=== PATIENT | female | born 1990 | race American Indian/Alaskan Native ===

== ENCOUNTER 2019-03-08 00:53 | Observation (INO) | payer OTHER ==
[2019-03-08 02:08] LABS: Eosinophils % (Auto) 0.5 % (0.0-4.3); Monocytes # (Auto) 0.7 K/mm3 (0.0-0.8); Monocytes % (Auto) 9.1 % (0.0-7.3)
[2019-03-08 02:30] LABS: Hematocrit 21.7 % (30.3-42.9); Hemoglobin 6.2 gm/dl (10.1-14.3); Mean Corpuscular HGB Conc 28 % (30-34); Mean Corpuscular Volume 54 fl (79-97); Red Blood Count 4.04 M/mm3 (3.65-5.03)
[2019-03-08 02:31] LABS: Basophils % (Auto) 0.3 % (0.0-1.8); Lymphocytes # (Auto) 0.3 K/mm3 (1.2-5.4); Mean Platelet Volume 8.5 fl (6-12); Platelet Count 262 K/mm3 (140-440); Red Cell Distribution Width 21.1 % (13.2-15.2)
[2019-03-08] MEDS ORDERED: ONDANSETRON 4 MG ODT TAB PO ONE (02:50)
[2019-03-08 02:51] LABS: Alanine Aminotransferase 11 units/L (7-56); Albumin 4.4 g/dL (3.9-5); BUN/Creatinine Ratio 18; Blood Urea Nitrogen 11 mg/dL (7-17); Calcium 9.2 mg/dL (8.4-10.2); Hemolysis Index 0
[2019-03-08] MEDS ORDERED: SODIUM CHLORIDE 0.9% 1000 ML 1,000 ML IV ONE (03:17)
[2019-03-08] MEDS ORDERED: ONDANSETRON 4 MG/2 ML INJ IV ONE (03:39)
[2019-03-08 03:42] LABS: % Iron Saturation 2.22 %
[2019-03-08 03:43] LABS: Bacteria,Urine 1+ /HPF (Negative); Bilirubin,Urine NEG (Negative); Blood,Urine LG (Negative); Color,Urine Yellow (Yellow); Mucus,Urine FEW /HPF; Urobilinogen,Urine < 2.0 mg/dL (<2.0)
[2019-03-08 03:46] LABS: HCG Qualitative,Urine Negative (Negative)
[2019-03-08 03:48] LABS: RBC,Urine 0.2 /HPF (0.0-6.0)
[2019-03-08] MEDS ORDERED: SODIUM CHLORIDE 0.9% 500 ML 500 ML IV ONE ×2 (04:01→07:54)
[2019-03-08] MEDS ORDERED: cefTRIAXone/NS 1 GM/50 ML 1 GM/50 ML BAG IV ONE (04:37)
[2019-03-08] MEDS ORDERED: SODIUM CHLORIDE 0.9% 250ML 250 ML ONE (05:16)
[2019-03-08] MEDS ORDERED: KETOROLAC 30 MG/1 ML INJ IV ONE (05:20)
--- NOTE | 2019-03-08 05:21 | Emergency Department Report ---
ED N/V/D HPI - General Chief complaint: Nausea/Vomiting/Diarrhea Stated complaint: N/V/D Time Seen by Provider: 03/08/19 03:49 Source: patient, EMS Mode of arrival: Wheelchair Limitations: No Limitations - History of Present Illness Initial comments: 28-year-old female with a past medical history of asthma, depression, and heavy menses presents to the hospital complaining of nausea, vomiting, and diarrhea by mouth intolerance since 11 PM. Patient complains of lower abdominal pain described as a constant aching worse with palpation and moderate in intensity. Patient is currently on menstrual cycle since yesterday and has used 5 pads super pads and has heavy menstrual cycles. Patient states she often has nausea vomiting with her menstruation but states this is more severe than usual. No complaints of fever. She denies a history of known anemia iron deficiency. She denies a history of fibroids. She does not have a primary care doctor. Patient doesn't was lightheadedness and intermittent shortness of breath but she does have a history of asthma. - Related Data Home Medications Medication Instructions Recorded Confirmed Last Taken No Known Home Medications [No 03/08/19 03/08/19 Unknown Reported Home Medications] Allergies Allergy/AdvReac Type Severity Reaction Status Date / Time coconut Allergy Itching Verified 03/08/19 06:51 ED Review of Systems ROS: Stated complaint: N/V/D Other details as noted in HPI Comment: All other systems reviewed and negative ED Past Medical Hx - Past Medical History Previous Medical History?: Yes Hx Psychiatric Treatment: Yes (Depression) Hx Asthma: Yes - Surgical History Past Surgical History?: No - Social History Smoking Status: Never Smoker Substance Use Type: Alcohol - Medications Home Medications: Home Medications Medication Instructions Recorded Confirmed Last Taken Type No Known Home Medications [No 03/08/19 03/08/19 Unknown History Reported Home Medications] ED Physical Exam - General Limitations: No Limitations - Other Other exam information: General: No acute distress Head: Atraumatic Eyes: normal appearance ENT: Moist mucous membranes Neck: Normal appearance, no midline tenderness Chest: Clear to auscultation bilaterally CV: Regular rate and rhythm Abdomen: Soft, normal bowel sounds, suprapubic fullness/mass with tenderness, no rebound or guarding Extremity: Normal inspection infection, full range of motion Neuro: Alert O x 3, no facial asymmetry, speech clear, no gross motor sensory deficit Psych: Appropriate behavior Skin: Pale nailbeds ED Course Vital Signs 03/08/19 03/08/19 03/08/19 01:13 03:11 03:41 Temperature 98.4 F Pulse Rate 77 60 Respiratory 16 20 14 Rate Blood Pressure 127/68 111/47 111/47 Blood Pressure [Left] O2 Sat by Pulse 95 100 97 Oximetry 03/08/19 03/08/19 03/08/19 04:00 06:20 06:30 Temperature 99 F Pulse Rate 67 75 77 Respiratory 12 13 12 Rate Blood Pressure 114/50 129/74 129/71 Blood Pressure [Left] O2 Sat by Pulse 99 100 Oximetry 03/08/19 03/08/19 03/08/19 06:35 06:46 07:00 Temperature 99.1 F Pulse Rate 67 69 Respiratory 17 14 Rate Blood Pressure 125/69 114/50 132/71 Blood Pressure [Left] O2 Sat by Pulse 100 100 Oximetry 03/08/19 03/08/19 03/08/19 07:05 07:14 07:15 Temperature 98.3 F Pulse Rate 69 54 L 67 Respiratory 14 15 12 Rate Blood Pressure 132/71 132/60 Blood Pressure 132/71 [Left] O2 Sat by Pulse 100 100 100 Oximetry 03/08/19 03/08/19 03/08/19 07:31 07:35 07:45 Temperature 98.3 F Pulse Rate 73 73 79 Respiratory 15 15 26 H Rate Blood Pressure 125/64 125/64 129/65 Blood Pressure [Left] O2 Sat by Pulse 100 100 90 Oximetry 03/08/19 03/08/19 03/08/19 08:00 08:05 08:15 Temperature 98.3 F Pulse Rate 54 L 54 L 71 Respiratory 15 15 22 Rate Blood Pressure 120/67 120/67 115/62 Blood Pressure [Left] O2 Sat by Pulse 100 100 96 Oximetry 03/08/19 03/08/19 03/08/19 08:30 08:35 08:45 Temperature Pulse Rate 71 68 68 Respiratory 14 14 20 Rate Blood Pressure 131/62 131/62 134/74 Blood Pressure [Left] O2 Sat by Pulse 98 98 100 Oximetry 03/08/19 09:24 Temperature 99 F Pulse Rate 68 Respiratory 18 Rate Blood Pressure Blood Pressure 134/74 [Left] O2 Sat by Pulse 100 Oximetry ED Medical Decision Making - Lab Data Result diagrams: 03/08/19 18:46 03/08/19 01:39 Lab Results 03/08/19 03/08/19 03/08/19 Range/Units 01:39 01:39 03:16 WBC 7.9 (4.5-11.0) K/mm3 RBC 4.04 (3.65-5.03) M/mm3 Hgb 6.2 L (10.1-14.3) gm/dl Hct 21.7 L (30.3-42.9) % MCV 54 L (79-97) fl MCH 15 L (28-32) pg MCHC 28 L (30-34) % RDW 21.1 H (13.2-15.2) % Plt Count 262 (140-440) K/mm3 Lymph % (Auto) 4.0 L (13.4-35.0) % Lucas % (Auto) 9.1 H (0.0-7.3) % Eos % (Auto) 0.5 (0.0-4.3) % Baso % (Auto) 0.3 (0.0-1.8) % Lymph # 0.3 L (1.2-5.4) K/mm3 Lucas # 0.7 (0.0-0.8) K/mm3 Eos # 0.0 (0.0-0.4) K/mm3 Baso # 0.0 (0.0-0.1) K/mm3 Seg Neutrophils % 85.8 H (40.0-70.0) % Seg Neutrophils # 6.8 (1.8-7.7) K/mm3 Sodium 137 (137-145) mmol/L Potassium 3.3 L (3.6-5.0) mmol/L Chloride 104.4 (98-107) mmol/L Carbon Dioxide 19 L (22-30) mmol/L Anion Gap 17 mmol/L BUN 11 (7-17) mg/dL Creatinine 0.6 L (0.7-1.2) mg/dL Estimated GFR > 60 ml/min BUN/Creatinine Ratio 18 % Glucose 127 H (65-100) mg/dL Calcium 9.2 (8.4-10.2) mg/dL Magnesium 1.70 (1.7-2.3) mg/dL Iron (37-170) ug/dL TIBC (250-450) mcg/dL % Saturation % Transferrin (192-382) mg/dl Total Bilirubin 0.20 (0.1-1.2) mg/dL AST 14 (5-40) units/L ALT 11 (7-56) units/L Alkaline Phosphatase 60 (35-129) units/L Total Protein 7.6 (6.3-8.2) g/dL Albumin 4.4 (3.9-5) g/dL Albumin/Globulin Ratio 1.4 % HCG, Qual (Negative) Urine Color (Yellow) Urine Turbidity (Clear) Urine pH (5.0-7.0) Ur Specific [place] (1.003-1.030) Urine Protein (Negative) mg/dL Urine Glucose (UA) (Negative) mg/dL Urine Ketones (Negative) mg/dL Urine Blood (Negative) Urine Nitrite (Negative) Urine Bilirubin (Negative) Urine Urobilinogen (<2.0) mg/dL Ur Leukocyte Esterase (Negative) Urine WBC (Auto) (0.0-6.0) /HPF Urine RBC (Auto) (0.0-6.0) /HPF U Epithel Cells (Auto) (0-13.0) /HPF Urine Bacteria (Auto) (Negative) /HPF Urine Mucus /HPF Urine HCG, Qual (Negative) Blood Type Antibody Screen Crossmatch 03/08/19 03/08/19 03/08/19 Range/Units 03:17 03:20 03:40 WBC (4.5-11.0) K/mm3 RBC (3.65-5.03) M/mm3 Hgb (10.1-14.3) gm/dl Hct (30.3-42.9) % MCV (79-97) fl MCH (28-32) pg MCHC (30-34) % RDW (13.2-15.2) % Plt Count (140-440) K/mm3 Lymph % (Auto) (13.4-35.0) % Lucas % (Auto) (0.0-7.3) % Eos % (Auto) (0.0-4.3) % Baso % (Auto) (0.0-1.8) % Lymph # (1.2-5.4) K/mm3 Lucas # (0.0-0.8) K/mm3 Eos # (0.0-0.4) K/mm3 Baso # (0.0-0.1) K/mm3 Seg Neutrophils % (40.0-70.0) % Seg Neutrophils # (1.8-7.7) K/mm3 Sodium (137-145) mmol/L Potassium (3.6-5.0) mmol/L Chloride (98-107) mmol/L Carbon Dioxide (22-30) mmol/L Anion Gap mmol/L BUN (7-17) mg/dL Creatinine (0.7-1.2) mg/dL Estimated GFR ml/min BUN/Creatinine Ratio % Glucose (65-100) mg/dL Calcium (8.4-10.2) mg/dL Magnesium (1.7-2.3) mg/dL Iron 10 L (37-170) ug/dL TIBC 451 H (250-450) mcg/dL % Saturation 2.22 % Transferrin 381 (192-382) mg/dl Total Bilirubin (0.1-1.2) mg/dL AST (5-40) units/L ALT (7-56) units/L Alkaline Phosphatase (35-129) units/L Total Protein (6.3-8.2) g/dL Albumin (3.9-5) g/dL Albumin/Globulin Ratio % HCG, Qual Negative (Negative) Urine Color Yellow (Yellow) Urine Turbidity Slightly-cloudy (Clear) Urine pH 7.0 (5.0-7.0) Ur Specific [place] 1.020 (1.003-1.030) Urine Protein 30 mg/dl (Negative) mg/dL Urine Glucose (UA) Neg (Negative) mg/dL Urine Ketones Neg (Negative) mg/dL Urine Blood Lg (Negative) Urine Nitrite Neg (Negative) Urine Bilirubin Neg (Negative) Urine Urobilinogen < 2.0 (<2.0) mg/dL Ur Leukocyte Esterase Neg (Negative) Urine WBC (Auto) 13.0 H (0.0-6.0) /HPF Urine RBC (Auto) 0.2 (0.0-6.0) /HPF U Epithel Cells (Auto) 1.0 (0-13.0) /HPF Urine Bacteria (Auto) 1+ (Negative) /HPF Urine Mucus Few /HPF Urine HCG, Qual Negative (Negative) Blood Type Antibody Screen Crossmatch 03/08/19 Range/Units 03:45 WBC (4.5-11.0) K/mm3 RBC (3.65-5.03) M/mm3 Hgb (10.1-14.3) gm/dl Hct (30.3-42.9) % MCV (79-97) fl MCH (28-32) pg MCHC (30-34) % RDW (13.2-15.2) % Plt Count (140-440) K/mm3 Lymph % (Auto) (13.4-35.0) % Lucas % (Auto) (0.0-7.3) % Eos % (Auto) (0.0-4.3) % Baso % (Auto) (0.0-1.8) % Lymph # (1.2-5.4) K/mm3 Lucas # (0.0-0.8) K/mm3 Eos # (0.0-0.4) K/mm3 Baso # (0.0-0.1) K/mm3 Seg Neutrophils % (40.0-70.0) % Seg Neutrophils # (1.8-7.7) K/mm3 Sodium (137-145) mmol/L Potassium (3.6-5.0) mmol/L Chloride (98-107) mmol/L Carbon Dioxide (22-30) mmol/L Anion Gap mmol/L BUN (7-17) mg/dL Creatinine (0.7-1.2) mg/dL Estimated GFR ml/min BUN/Creatinine Ratio % Glucose (65-100) mg/dL Calcium (8.4-10.2) mg/dL Magnesium (1.7-2.3) mg/dL Iron (37-170) ug/dL TIBC (250-450) mcg/dL % Saturation % Transferrin (192-382) mg/dl Total Bilirubin (0.1-1.2) mg/dL AST (5-40) units/L ALT (7-56) units/L Alkaline Phosphatase (35-129) units/L Total Protein (6.3-8.2) g/dL Albumin (3.9-5) g/dL Albumin/Globulin Ratio % HCG, Qual (Negative) Urine Color (Yellow) Urine Turbidity (Clear) Urine pH (5.0-7.0) Ur Specific [place] (1.003-1.030) Urine Protein (Negative) mg/dL Urine Glucose (UA) (Negative) mg/dL Urine Ketones (Negative) mg/dL Urine Blood (Negative) Urine Nitrite (Negative) Urine Bilirubin (Negative) Urine Urobilinogen (<2.0) mg/dL Ur Leukocyte Esterase (Negative) Urine WBC (Auto) (0.0-6.0) /HPF Urine RBC (Auto) (0.0-6.0) /HPF U Epithel Cells (Auto) (0-13.0) /HPF Urine Bacteria (Auto) (Negative) /HPF Urine Mucus /HPF Urine HCG, Qual (Negative) Blood Type A POSITIVE Antibody Screen Negative Crossmatch See Detail - EKG Data -: EKG Interpreted by Me EKG shows normal: sinus rhythm, ST-T waves (no stemi) Rate: normal (66) - Radiology Data Radiology results: report reviewed CT of the abdomen and pelvis with contrast INDICATION: Mid and lower abdominal pain with nausea and vomiting COMPARISON: None FINDINGS: Lung bases are clear. The liver, spleen, pancreas, adrenal glands and kidneys show no abnormalities. No definite gallbladder or biliary tree abnormality. No fluid or adenopathy in the upper abdomen. No gastric wall thickening. CT of the pelvis shows a significantly enlarged uterus with multiple uterine fibroids present. Several of these show lower central attenuation which may indicate degeneration. Appendix is seen and is normal. Small follicular cysts are seen in the ovaries with moderate pelvic fluid. Fluid is seen in the cervix as well. No hernia or bowel obstruction. No significant skeletal lesion. IMPRESSION: Extensive uterine fibroids several which may be undergoing degeneration. There is moderate free pelvic fluid but no appendicitis or adnexal mass. - Medical Decision Making Patient has significant anemia with iron deficiency and active vaginal bleeding secondary to menstrual cycle. She denies known history of iron deficiency anemia but does not have a primary care doctor for follow-up. Patient appears pale, weak and fatigued and therefore one unit of PRBC blood ordered in addition to normal saline and some Zofran. Patient treated with Rocephin for UTI. Toradol provided for pain. Plan to admit to the hospital pending CT abdomen and pelvis result. Ct result confirmed multiple fibroid uterus - Differential Diagnosis iron deficiency anemia, acute blood loss, age, , appendicitis, fib Critical Care Time: No Critical care attestation.: If time is entered above; I have spent that time in minutes in the direct care of this critically ill patient, excluding procedure time. ED Disposition Clinical Impression: Symptomatic anemia, Iron deficiency, Menorrhagia, Fibroids, Nausea vomiting and diarrhea, UTI (urinary tract infection) Disposition: OP ADMIT IP TO THIS HOSP Is pt being admited?: Yes Condition: Stable Time of Disposition: 06:14
--- NOTE | 2019-03-08 06:09 | Cat Scan Report ---
. CT of the abdomen and pelvis with contrast INDICATION: Mid and lower abdominal pain with nausea and vomiting COMPARISON: None FINDINGS: Lung bases are clear. The liver, spleen, pancreas, adrenal glands and kidneys show no abnor malities. No definite gallbladder or biliary tree abnormality. No fluid or adenopathy in the upper ab domen. No gastric wall thickening. CT of the pelvis shows a significantly enlarged uterus with multiple uterine fibroids present. Severa l of these show lower central attenuation which may indicate degeneration. Appendix is seen and is no rmal. Small follicular cysts are seen in the ovaries with moderate pelvic fluid. Fluid is seen in the cervix as well. No hernia or bowel obstruction. No significant skeletal lesion. IMPRESSION: Extensive uterine fibroids several which may be undergoing degeneration. There is moderat e free pelvic fluid but no appendicitis or adnexal mass. Automated exposure control was utilized to diminish radiation dose. Signer Name: Chalo Raygoza MD Signed: 03/08/2019 6:05 AM Workstation Name: [id number]
[2019-03-08] MEDS ORDERED: diphenhydrAMINE 50 MG/ML VIAL IV ONE (06:10)
[2019-03-08] MEDS ORDERED: METOCLOPRAMIDE 10 MG/2 ML INJ IV ONE (06:10)
[2019-03-08] MEDS: POTASSIUM CHLORIDE 10 MEQ 10 MEQ/100 ML BAG IV SCH ×2 (06:28→07:42)
[2019-03-08] MEDS ORDERED: MORPHINE 4 MG/1 ML INJ IV PRN (07:59)
[2019-03-08] MEDS ORDERED: ONDANSETRON 4 MG/2 ML INJ IV PRN (07:59)
[2019-03-08] MEDS ORDERED: MORPHINE 2 MG/1 ML INJ IV PRN (07:59)
[2019-03-08] MEDS ORDERED: ONDANSETRON 4 MG/2 ML INJ ONE (08:59)
--- NOTE | 2019-03-08 12:17 | History and Physical Report ---
History of Present Illness Date of examination: 03/08/19 Date of admission: 03/08/19 06:35 Chief complaint: Nausea,vomiting,diarrhea Heavy periods History of present illness: Patient is 28 yo with history of asthma, and heavy menses. She presents with nausea, vomiting, diarrhea and abdominal pain . abdominal pain is lower abdomen, dull pain, 8 out of 10 associated with current menses. She states this menstrual cycle has been complicated by worse nausea and vomiting. She denies history of fibroids. She was seen and evaluated in ED, and labs reveal hemoglobin of 6.2. Will admit and transfuse PRBC. Past History Past Medical History: other (asthma) Past Surgical History: No surgical history Social history: single, full code, other (Alcohol occasionally). denies: sm oking Family history: no significant family history (Adopted) Medications and Allergies Allergies Allergy/AdvReac Type Severity Reaction Status Date / Time banana Allergy Itching Verified 03/09/19 07:55 coconut Allergy Itching Verified 03/08/19 06:51 pecan nut Allergy Itching Verified 03/09/19 07:56 walnut Allergy Itching Verified 03/09/19 07:57 Home Medications Medication Instructions Recorded Confirmed Last Taken Type Ferrous Sulfate [Feosol 325 MG tab] 325 mg PO BID #60 tablet 03/09/19 Unknown Rx cefUROXime [Ceftin] 500 mg PO Q12H 3 Days tablet 03/09/19 Unknown Rx Active Meds: Active Medications Acetaminophen (Tylenol) 650 mg PO Q4H PRN PRN Reason: Pain MILD(1-3)/Fever >100.5/FLORES Ceftriaxone Sodium (Rocephin/Ns 1 Gm/50 Ml) 1 gm in 50 mls @ 100 mls/hr IV Q24HR SUNSHINE; Protocol Morphine Sulfate (Morphine) 2 mg IV Q4H PRN PRN Reason: Pain, Moderate (4-6) Morphine Sulfate (Morphine) 4 mg IV Q4H PRN PRN Reason: Pain , Severe (7-10) Last Admin: 03/08/19 11:15 Dose: 4 mg Documented by: Ondansetron HCl (Zofran) 4 mg IV Q6H PRN PRN Reason: Nausea And Vomiting Last Admin: 03/08/19 08:58 Dose: 4 mg Documented by: Sodium Chloride (Sodium Chloride Flush Syringe 10 Ml) 10 ml IV BID [facility] Last Admin: 03/08/19 10:54 Dose: 10 ml Documented by: Sodium Chloride (Sodium Chloride Flush Syringe 10 Ml) 10 ml IV PRN PRN PRN Reason: LINE FLUSH Review of Systems All systems: negative (No fever, no headache, no abd pain. All other systems reviewed and are negative.) Exam - Physical Exam Narrative exam: Gen: Not in acute distress, HEENT: Normocephalic, atraumatic Neck: supple, no JVD Heart: S1 and S2 reg, no murmurs, rubs or gallop Lungs: Clear to auscultation, no wheezing Abd: soft, non tender, non distended, normal BS Ext: No edema, no clubbing, no cyanosis Neuro: Awake,alert, oriented X 3, moves all ext - Constitutional Vitals: Temp Pulse Resp BP Pulse Ox 98.8 F 62 16 113/52 98 03/08/19 10:40 03/08/19 10:42 03/08/19 10:40 03/08/19 10:40 03/08/19 10:42 Results - Labs CBC & Chem 7: 03/09/19 07:08 03/09/19 07:08 Labs: Abnormal lab results 03/08/19 03/08/19 03/08/19 Range/Units 01:39 01:39 03:17 Hgb 6.2 L (10.1-14.3) gm/dl Hct 21.7 L (30.3-42.9) % MCV 54 L (79-97) fl MCH 15 L (28-32) pg MCHC 28 L (30-34) % RDW 21.1 H (13.2-15.2) % Lymph % (Auto) 4.0 L (13.4-35.0) % [place] % (Auto) 9.1 H (0.0-7.3) % Lymph # 0.3 L (1.2-5.4) K/mm3 Seg Neutrophils % 85.8 H (40.0-70.0) % Potassium 3.3 L (3.6-5.0) mmol/L Carbon Dioxide 19 L (22-30) mmol/L Creatinine 0.6 L (0.7-1.2) mg/dL Glucose 127 H (65-100) mg/dL Iron 10 L (37-170) ug/dL TIBC 451 H (250-450) mcg/dL Urine WBC (Auto) (0.0-6.0) /HPF Crossmatch 03/08/19 03/08/19 Range/Units 03:20 03:45 Hgb (10.1-14.3) gm/dl Hct (30.3-42.9) % MCV (79-97) fl MCH (28-32) pg MCHC (30-34) % RDW (13.2-15.2) % Lymph % (Auto) (13.4-35.0) % [place] % (Auto) (0.0-7.3) % Lymph # (1.2-5.4) K/mm3 Seg Neutrophils % (40.0-70.0) % Potassium (3.6-5.0) mmol/L Carbon Dioxide (22-30) mmol/L Creatinine (0.7-1.2) mg/dL Glucose (65-100) mg/dL Iron (37-170) ug/dL TIBC (250-450) mcg/dL Urine WBC (Auto) 13.0 H (0.0-6.0) /HPF Crossmatch See Detail Assessment and Plan Anemia due to chronic blood loss From menorrhagia Place on Observation Transfuse 2 units PRBC Consult Gynecology Dysmenorrhea Gyne consulted Uterine fibroids with menorrhagia Gyne consulted Acute gastroenteritis iv fluids UTI Rocephin iv Full code status
--- NOTE | 2019-03-08 14:35 | Consultation ---
History of Present Illness Consult date: 03/08/19 Reason for consult: pelvic mass (CT reported uterine fibroids.) Medications and Allergies Allergies Allergy/AdvReac Type Severity Reaction Status Date / Time coconut Allergy Itching Verified 03/08/19 06:51 Home Medications Medication Instructions Recorded Confirmed Last Taken Type Amoxicillin [Trimox CAP] 500 mg PO Q8H #30 capsule 02/02/13 Unknown Rx Citalopram [Celexa] 20 mg PO QDAY 02/02/13 Unknown History Hydrocodone Bit/Acetaminophen 1 tab PO Q6H PRN #16 tablet 02/02/13 Unknown Rx [Lortab 10-500 mg] traZODone [Desyrel] 50 mg PO QHS 02/02/13 02/02/13 02/02/13 History Active Meds: Active Medications Acetaminophen (Tylenol) 650 mg PO Q4H PRN PRN Reason: Pain MILD(1-3)/Fever >100.5/FLORES Ceftriaxone Sodium (Rocephin/Ns 1 Gm/50 Ml) 1 gm in 50 mls @ 100 mls/hr IV Q24HR SUNSHINE; Protocol Morphine Sulfate (Morphine) 2 mg IV Q4H PRN PRN Reason: Pain, Moderate (4-6) Morphine Sulfate (Morphine) 4 mg IV Q4H PRN PRN Reason: Pain , Severe (7-10) Last Admin: 03/08/19 11:15 Dose: 4 mg Documented by: Ondansetron HCl (Zofran) 4 mg IV Q6H PRN PRN Reason: Nausea And Vomiting Last Admin: 03/08/19 08:58 Dose: 4 mg Documented by: Sodium Chloride (Sodium Chloride Flush Syringe 10 Ml) 10 ml IV BID SUNSHINE Last Admin: 03/08/19 10:54 Dose: 10 ml Documented by: Sodium Chloride (Sodium Chloride Flush Syringe 10 Ml) 10 ml IV PRN PRN PRN Reason: LINE FLUSH Review of Systems All systems: negative Constitutional: no fever, no chills, no chronic pain Cardiovascular: no chest pain, no shortness of breath Respiratory: no cough, no wheezing Genitourinary: vaginal bleeding (on menses since 2 days ago. no active vag bleeding on inspection) Hematologic/Lymphatic: no easy bruising, no easy bleeding, no thrombophilia - Vital Signs Vital signs: Vital Signs Temp Resp BP Pulse Ox 98.4 F 16 127/68 95 03/08/19 01:13 03/08/19 01:13 03/08/19 01:13 03/08/19 01:13 Temp Pulse Resp BP Pulse Ox 98.7 F 53 L 18 93/43 99 03/08/19 12:15 03/08/19 13:42 03/08/19 12:14 03/08/19 13:42 03/08/19 13:42 - Physical Exam Cardiovascular: Other (Blood transfusion in progress.) Lungs: Positive: Normal air movement Abdomen: Positive: normal appearance. Negative: distention, tenderness Vulva: right: normal Results Result Diagrams: 03/08/19 01:39 03/08/19 01:39 Abnormal lab results 03/08/19 03/08/19 03/08/19 Range/Units 01:39 01:39 03:17 Hgb 6.2 L (10.1-14.3) gm/dl Hct 21.7 L (30.3-42.9) % MCV 54 L (79-97) fl MCH 15 L (28-32) pg MCHC 28 L (30-34) % RDW 21.1 H (13.2-15.2) % Lymph % (Auto) 4.0 L (13.4-35.0) % [place] % (Auto) 9.1 H (0.0-7.3) % Lymph # 0.3 L (1.2-5.4) K/mm3 Seg Neutrophils % 85.8 H (40.0-70.0) % Potassium 3.3 L (3.6-5.0) mmol/L Carbon Dioxide 19 L (22-30) mmol/L Creatinine 0.6 L (0.7-1.2) mg/dL Glucose 127 H (65-100) mg/dL Iron 10 L (37-170) ug/dL TIBC 451 H (250-450) mcg/dL Urine WBC (Auto) (0.0-6.0) /HPF Crossmatch 03/08/19 03/08/19 Range/Units 03:20 03:45 Hgb (10.1-14.3) gm/dl Hct (30.3-42.9) % MCV (79-97) fl MCH (28-32) pg MCHC (30-34) % RDW (13.2-15.2) % Lymph % (Auto) (13.4-35.0) % [place] % (Auto) (0.0-7.3) % Lymph # (1.2-5.4) K/mm3 Seg Neutrophils % (40.0-70.0) % Potassium (3.6-5.0) mmol/L Carbon Dioxide (22-30) mmol/L Creatinine (0.7-1.2) mg/dL Glucose (65-100) mg/dL Iron (37-170) ug/dL TIBC (250-450) mcg/dL Urine WBC (Auto) 13.0 H (0.0-6.0) /HPF Crossmatch See Detail All other labs normal. Assessment and Plan - Patient Problems (1) Fibroids Current Visit: Yes Status: Acute Plan to address problem: Patient likely became anemic from long standing heavy periods. CT findings of uterine fibroids was noted. Plan; After correction of symptomatic anemia, patient's fibroids and heavy john ods could be addressed as outpatient problems. May follow up with own Control Board Operator or with [facility] Control Board Operator [employer]. Unless recalled if needed, I am signing out for Control Board Operator service.
[2019-03-08 19:34] LABS: Hematocrit 25.2 % (30.3-42.9); Hemoglobin 7.5 gm/dl (10.1-14.3); Mean Corpuscular HGB Conc 30 % (30-34); Platelet Count 255 K/mm3 (140-440)
[2019-03-08 19:35] LABS: Mean Corpuscular Volume 60 fl (79-97); Red Cell Distribution Width 29.9 % (13.2-15.2)
[2019-03-08] MEDS: FERROUS SULFATE 325 MG TAB PO SCH (21:46)
[2019-03-09] MEDS: FERROUS SULFATE 325 MG TAB PO SCH ×2 (04:03→14:53)
[2019-03-09] MEDS: ACETAMINOPHEN 325 MG TAB PO PRN ×2 (07:45→14:53)
[2019-03-09 08:48] LABS: Hematocrit 24.8 % (30.3-42.9); Hemoglobin 7.6 gm/dl (10.1-14.3); Mean Corpuscular HGB Conc 31 % (30-34); Platelet Count 230 K/mm3 (140-440)
[2019-03-09 08:52] LABS: Mean Corpuscular Volume 60 fl (79-97); Red Cell Distribution Width 29.7 % (13.2-15.2)
[2019-03-09 09:06] LABS: BUN/Creatinine Ratio 16; Blood Urea Nitrogen 11 mg/dL (7-17); Calcium 8.1 mg/dL (8.4-10.2); Hemolysis Index 2
--- NOTE | 2019-03-09 09:10 | Discharge Summary ---
Providers - Providers Date of Admission: 03/08/19 06:35 Date of discharge: 03/09/19 Attending physician: SALENA PLUMMER 03/08/19 07:58 Consult to Physician [CONS] Routine Comment: Consulting Provider: VANITA VELASQUEZ Physician Instructions: Reason For Exam: heavy menses, degenerating uterine fibroids Primary care physician: DIRECTOR IMAGING Hospitalization Condition: Stable Hospital course: Patient is 28 yo with history of asthma, and heavy menses. She presented with nausea, vomiting, diarrhea and abdominal pain . abdominal pain is lower abdomen, dull pain, 8 out of 10 associated with current menses. She states this menstrual cycle has been complicated by worse nausea and vomiting. She denies history of fibroids. She was seen and evaluated in ED, and labs reveal hemoglobin of 6.2. CT Abdomen revealed extensive uterine fibroids with degeneration. She was admitted, transfused 2 Units PRBC, evaluated by Art Department Head. The Art Department Head recommended outpatient follow up. Posyt transfusion hemoglobin 7.6 and she was discharged home. Disposition: DC- TO HOME OR SELFCARE - Discharge Diagnoses (1) Dysmenorrhea Status: Acute (2) Fibroids Status: Acute (3) Iron deficiency Status: Acute (4) Menorrhagia Status: Acute (5) Nausea vomiting and diarrhea Status: Acute (6) UTI (urinary tract infection) Status: Acute (7) Anemia due to chronic blood loss Status: Acute (8) Uterine fibroid Status: Acute Core Measure Documentation - Palliative Care Palliative Care/ Comfort Measures: Not Applicable - Core Measures Any of the following diagnoses?: none Exam - Constitutional Vitals: Temp Pulse Resp BP Pulse Ox 98.4 F 65 18 113/47 99 03/09/19 05:36 03/09/19 05:36 03/09/19 05:36 03/09/19 05:36 03/09/19 05:36 Plan Activity: no restrictions Diet: regular Plan of Treatment: 1.Follow up with PCP or [facility] in 1 week. 2.Follow up with Umberto Tariq in 1 week Follow up with: PRIMARY CARE, [Primary Care Provider] - 7 Days Forms: Work/School Release Form Prescriptions: cefUROXime [Ceftin] 500 mg PO Q12H 3 Days tablet Ferrous Sulfate [Feosol 325 MG tab] 325 mg PO BID #60 tablet
[2019-03-09 10:00] LABS: Basophils % (Manual) 0 % (0.0-1.8); Eosinophils % (Manual) 0 % (0.0-4.3); Monocytes % (Manual) 0 % (0.0-7.3); Total Cells Counted 100
[2019-03-09] MEDS ORDERED: cefTRIAXone/NS 1 GM/50 ML 1 GM/50 ML BAG IV SCH (10:00)
[2019-03-09 10:01] LABS: Anisocytosis 3+; Dimorphic RBC Yes; Hypochromasia 2+; Large Platelets Few; Tear Drop Cells Few
[2019-03-09 10:02] LABS: Ovalocytes Few; Platelet Estimate Consistent w Auto
[2019-03-09 13:11] VITALS: BP 105/62
[2019-03-09] MEDS ORDERED: FLU VACC QUAD 2019-20 (3 YR UP)/PF 60 MCG/0.5 ML SYRINGE IM ONE (14:00)
== END 2019-03-09 19:10 | disposition home or self-care (01) ==
LOC: ED 00:53 → 3A 06:35
PROVIDERS: ADMIT Internal Medicine; ATTEND Internal Medicine
DX: D50.0 Iron deficiency anemia secondary to blood loss (chronic) (principal); N92.0 Excessive and frequent menstruation with regular cycle; D25.9 Leiomyoma of uterus, unspecified; N39.0 Urinary tract infection, site not specified; K52.9 Noninfective gastroenteritis and colitis, unspecified; F32.9 Major depressive disorder, single episode, unspecified; R11.2 Nausea with vomiting, unspecified; R19.7 Diarrhea, unspecified; J45.909 Unspecified asthma, uncomplicated; Z79.899 Other long term (current) drug therapy; Z91.018 Allergy to other foods; Z88.8 Allergy status to other drugs, medicaments and biological substances; Z88.2 Allergy status to sulfonamides
CPT/HCPCS: 36415; 36430; 74177; 80048; 80053; 81001; 81025; 83550; 83735; 84703; 85007; 85025; 85027; 86850; 86900; 86901; 86920; 87086; 90686; 93005; 93010; 96361; 96365; 96375; 99284; G0378; J0696; J1200; J1885; J2270; J2405; J2765; J3480; J7030; J7040; J7050; P9016; Q9967; Q0162